=== PATIENT | female | born 1990 | race African-American/Black ===

== ENCOUNTER 2017-08-21 18:59 | Emergency (ER) | payer SELFPAY, MEDICAID | END 2017-08-21 20:44 | disposition home or self-care (01) | LOC: ER 18:59 | DX: S90.121A Contusion of right lesser toe(s) without damage to nail, initial encounter (principal); F17.200 Nicotine dependence, unspecified, uncomplicated; Z91.040 Latex allergy status; W31.1XXA Contact with metalworking machines, initial encounter; Y93.89 Activity, other specified; Y92.89 Other specified places as the place of occurrence of the external cause; Y99.8 Other external cause status | CPT/HCPCS: 73630; 99284 ==